=== PATIENT | male | born 1955 | race Caucasian/White ===

== ENCOUNTER 2017-11-15 08:49 | Emergency (ER) | payer OTHER ==
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
[2017-11-15] MEDS ORDERED: methylPREDNISolone SOD SUCC 125 MG/2 ML VIAL IVP ONE (09:04)
[2017-11-15] MEDS ORDERED: NS 1,000 ML IV ONE (09:05)
[2017-11-15] MEDS ORDERED: RANITIDINE 50 MG/2 ML VIAL IVP ONE (09:05)
[2017-11-15 10:51] VITALS: BP 129/79
[2017-11-15] MEDS ORDERED: methylPREDNISolone SOD SUCC 125 MG/2 ML VIAL ONE (12:36)
[2017-11-15] MEDS ORDERED: RANITIDINE 50 MG/2 ML VIAL ONE (12:36)
== END 2017-11-15 11:15 | disposition home or self-care (01) ==
DX: T63.441A Toxic effect of venom of bees, accidental (unintentional), initial encounter (principal); E11.9 Type 2 diabetes mellitus without complications; G47.33 Obstructive sleep apnea (adult) (pediatric)
CPT/HCPCS: 96374; J2780; J2930